=== PATIENT | female | born 2000 | race African-American/Black ===

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

== ENCOUNTER 2022-02-04 08:40 | Emergency (ER) | payer OTHER ==
[~2022-02-04] VITALS: Ht 170.2 cm; Wt 131.0 kg
[~2022-02-04 08:40] MED LIST: AMOXICILLIN500 M2 PO
[2022-02-04 08:48] VITALS: BP 118/89
[2022-02-04] MEDS ORDERED: FAMCICLOVIR500 MG PO ×2 (08:58→09:46)
[2022-02-04 09:01] VITALS: BP 121/51
[2022-02-04 09:31] VITALS: BP 114/70
[2022-02-04 09:46] VITALS: BP 115/70
[2022-02-04 09:54] VITALS: BP 115/70
== END 2022-02-04 09:54 | disposition home or self-care (01) ==
LOC: ED 08:40
DX: B00.1 Herpesviral vesicular dermatitis (principal)